=== PATIENT | female | born 1930 | race Caucasian/White ===

== ENCOUNTER 2016-05-14 11:57 | Emergency (ER) | payer OTHER, BC ==
[~2016-05-14] VITALS: Ht 152.4 cm; Wt 55.6 kg
[~2016-05-14 11:57] MED LIST: ADULT LOW DOSE81 M1 PO; ASPIR-LOW81 MG PO; CENTRUM SILVER1 EAC3 PO; COREG6.25 M1 PO; COUMADIN2 MG PO; COZAAR25 MG PO; COZAAR50 MG PO; FLEXERIL5 MG PO; GLUCOTROL5 MG PO; LANOXIN,DIGI0.125 MG PO; LASIX40 MG PO; MELATONIN5 M1 PO; NORCO 5/3251 TABLET PO; OS-CAL 500+D C1 EAC1 PO; PRILOSEC40 MG PO; REQUIP0.25 MG PO; ROCALTROL0.25 MCG PO; SIMVASTATIN40 MG PO; SPIRONOLACTONE25 MG PO; VITAMIN D1000 UNIT PO
[2016-05-14 12:38] LABS: EOSINOPHIL COUNT 0.1 K/uL (0-0.3); HEMATOCRIT 33.3 % (36.0-46.0); IMMATURE GRANULOCYTE (%) 0.3 % (0.0-0.7); IMMATURE GRANULOCYTE COUNT 0.2 K/uL; LYMPHOCYTE COUNT 1.9 K/uL (1.0-2.8); MCH 30.2 PG (29.0-34.0); MCHC 32.7 G/DL (30.0-36.0); MCV 92.2 FL (83-99); MEAN PLAT.VOLUME 9.7 uM^3 (9.5-12.4); MONOCYTE (%) 8.8 % (3-12); MONOCYTE COUNT 0.6 K/uL (0-0.8); NEUTROPHIL COUNT 4.4 K/uL (1.8-6.4); PLATELET COUNT 217 K/uL (156-360); RBC DIS.WIDTH-SD 49.1 % (39-53); RED BLOOD COUNT 3.61 M/uL (3.80-5.20); WHITE BLOOD COUNT 7.1 K/uL (4.1-10.2)
[2016-05-14 12:49] LABS: CHLORIDE 108 mEq/L (99-109); POTASSIUM 3.9 mEq/L (3.7-5.4); SODIUM 140 mEq/L (136-147)
[2016-05-14 12:52] LABS: ANION GAP 11 MEQ/L (2-14); GLUCOSE 159 mg/dL (70-99)
[2016-05-14 12:53] LABS: TOTAL BILIRUBIN 0.6 mg/dL (0.0-1.0)
[2016-05-14 12:54] LABS: ALKALINE PHOSPHATASE 67 IU/L (3-129)
[2016-05-14 12:55] LABS: GFR ESTIMATE (CALCULATED) 32 mL/min/
[2016-05-14 12:56] LABS: UREA NITROGEN (BUN) 28 mg/dL (9-23)
[2016-05-14 12:57] LABS: D-DIMER ELISA 0.55 mg/L FEU (< 0.57)
[2016-05-14] MEDS ORDERED: LEVAQUIN500 MG PO (14:46)
[2016-05-14 15:31] VITALS: BP 116/78
== END 2016-05-14 15:33 | disposition home or self-care (01) ==
LOC: EME → EDBD 11:57 → EME 15:33
PROVIDERS: Emergency Medicine
DX: I50.9 Heart failure, unspecified (principal); J18.9 Pneumonia, unspecified organism; Z79.01 Long term (current) use of anticoagulants; I25.2 Old myocardial infarction; Z86.73 Personal history of transient ischemic attack (TIA), and cerebral infarction without residual deficits; E11.9 Type 2 diabetes mellitus without complications; K21.9 Gastro-esophageal reflux disease without esophagitis; Z87.891 Personal history of nicotine dependence
CPT/HCPCS: 71010; 80053; 83605; 83880; 85025; 85379; 87040; 93005; 99281; 99285; J1940; J1956

== ENCOUNTER 2017-05-09 18:12 | Inpatient (IN) | payer OTHER, BC ==
[~2017-05-09] VITALS: Ht 121.9 cm; Wt 57.0 kg
[~2017-05-09 18:12] MED LIST changes: +CALCIUM 600 +1 EAC2 PO; +GLUCOTROL XL5 MG PO; -GLUCOTROL5 MG PO; -LANOXIN,DIGI0.125 MG PO; +LANOXIN125 MCG PO; +LASIX20 MG PO; -LASIX40 MG PO; +LEVAQUIN500 MG PO; +OMEPRAZOLE40 M1 PO; -OS-CAL 500+D C1 EAC1 PO; -PRILOSEC40 MG PO
[2017-05-09 19:25] LABS: HEMATOCRIT 32.9 % (36.0-46.0); HEMOGLOBIN 10.8 G/DL (11.9-15.5); MCH 31.1 PG (29.0-34.0); MCHC 32.8 G/DL (30.0-36.0); MCV 94.8 FL (83-99); RBC DIS.WIDTH-CV 13.5 % (11.8-14.6); RBC DIS.WIDTH-SD 46.7 % (39-53); RED BLOOD COUNT 3.47 M/uL (3.80-5.20)
[2017-05-09 19:31] LABS: PLATELET COUNT 158 K/uL (156-360)
[2017-05-09 19:36] LABS: CHLORIDE 103 mEq/L (99-109); POTASSIUM 4.5 mEq/L (3.7-5.4); SODIUM 137 mEq/L (136-147)
[2017-05-09 19:38] LABS: GLUCOSE 106 mg/dL (70-99)
[2017-05-09 19:42] LABS: CREATININE 1.8 mg/dL (0.6-1.3); GFR ESTIMATE (CALCULATED) 28 mL/min/
[2017-05-09 19:43] LABS: UREA NITROGEN (BUN) 29 mg/dL (9-23)
[2017-05-09 19:56] LABS: APPEARANCE CLOUDY ((CLEAR)); BILIRUBIN NEGATIVE; BLOOD MODERATE; COLOR YELLOW ((YELLOW)); GLUCOSE (STRIP) NEGATIVE; KETONES NEGATIVE; LEUKOCYTES LARGE; NITRITE NEGATIVE; PROTEIN (STRIP) 100; SPECIFIC GRAVITY 1.012 (1.000-1.030); UROBILINOGEN 0.2 MG/DL (0.2-1.0)
[2017-05-09 20:12] LABS: TROP-I INTERPRETATION NEGATIVE; TROPONIN-I 0.18 ng/mL (0.0-0.30)
[2017-05-09 20:18] LABS: BACTERIA 3+ /HPF; EPITHELIAL CELLS NONE SEEN /HPF; MUCUS NONE SEEN /LPF; RED BLOOD CELLS 0-5 /HPF (0-5); UCUL ADDED? YES; WHITE BLOOD CELLS TNTC /HPF (0-5)
[2017-05-09] MEDS ORDERED: GLIPIZIDE ER2.5 MG PO (21:07)
[2017-05-09] MEDS ORDERED: ELIQUIS2.5 MG PO (21:09)
[2017-05-09] MEDS ORDERED: IPRATROPIUM BRO30 ML BOTH NARES (21:09)
[2017-05-09] MEDS ORDERED: SYNTHROID50 MCG PO ×2 (21:10)
[2017-05-10 00:52] VITALS: BP 114/62
[2017-05-10 06:35] LABS: CHLORIDE 106 MEQ/L (99-109); CREATININE 1.8 MG/DL (0.6-1.3); GFR ESTIMATE (CALCULATED) 28 mL/min/; GLUCOSE 113 mg/dL (70-99); POTASSIUM 3.9 MEQ/L (3.7-5.4); SODIUM 140 MEQ/L (136-147); UREA NITROGEN (BUN) 34 mg/dL (9-23)
[2017-05-10 07:28] VITALS: BP 124/60
[2017-05-10 08:03] LABS: HEMATOCRIT 31.3 % (36.0-46.0); HEMOGLOBIN 9.8 G/DL (11.9-15.5); MCH 30.2 PG (29.0-34.0); MCHC 31.3 G/DL (30.0-36.0); MCV 96.3 FL (83-99); PLATELET COUNT 139 K/uL (156-360); RBC DIS.WIDTH-CV 13.6 % (11.8-14.6); RBC DIS.WIDTH-SD 48.5 % (39-53); RED BLOOD COUNT 3.25 M/uL (3.80-5.20); WHITE BLOOD COUNT 5.4 K/uL (4.1-10.2)
[2017-05-10 11:15] VITALS: BP 107/51
[2017-05-10 15:09] VITALS: BP 131/58
[2017-05-10 19:11] VITALS: BP 130/60
[2017-05-10 23:35] VITALS: BP 132/62
[2017-05-11 04:08] VITALS: BP 136/62
[2017-05-11 07:15] VITALS: BP 146/63
[2017-05-11 11:06] VITALS: BP 109/55
[2017-05-11] MEDS ORDERED: LEVOFLOXACIN750 MG PO (13:47)
[2017-05-11] MEDS ORDERED: OSELTAMIVIR PHO30 MG PO (13:48)
[2017-05-11 15:59] VITALS: BP 114/59
== END 2017-05-11 17:04 | disposition home health service (06) | DRG 193 ==
LOC: EME 18:12 → EDOF 21:24 → 5SOUTH 21:24 → ENRESERV 21:26 → 5SOUTH 05-10 00:16
PROVIDERS: Emergency Medicine; Hospitalist; Internal Medicine
DX: J10.08 Influenza due to other identified influenza virus with other specified pneumonia (principal); J15.9 Unspecified bacterial pneumonia; J96.01 Acute respiratory failure with hypoxia; I13.0 Hypertensive heart and chronic kidney disease with heart failure and stage 1 through stage 4 chronic kidney disease, or unspecified chronic kidney disease; I50.9 Heart failure, unspecified; N18.3 Chronic kidney disease, stage 3 (moderate); E11.22 Type 2 diabetes mellitus with diabetic chronic kidney disease; I48.0 Paroxysmal atrial fibrillation; I25.10 Atherosclerotic heart disease of native coronary artery without angina pectoris; I42.0 Dilated cardiomyopathy; I25.2 Old myocardial infarction; I47.1 Supraventricular tachycardia; D63.8 Anemia in other chronic diseases classified elsewhere; G25.81 Restless legs syndrome; M19.90 Unspecified osteoarthritis, unspecified site; M54.16 Radiculopathy, lumbar region; G89.29 Other chronic pain; G47.00 Insomnia, unspecified; E78.5 Hyperlipidemia, unspecified; E03.9 Hypothyroidism, unspecified; K21.9 Gastro-esophageal reflux disease without esophagitis; F32.9 Major depressive disorder, single episode, unspecified; Z86.73 Personal history of transient ischemic attack (TIA), and cerebral infarction without residual deficits; Z87.19 Personal history of other diseases of the digestive system; Z87.442 Personal history of urinary calculi; Z90.710 Acquired absence of both cervix and uterus; Z96.642 Presence of left artificial hip joint; Z87.891 Personal history of nicotine dependence; Z79.01 Long term (current) use of anticoagulants; Z83.3 Family history of diabetes mellitus; Z82.49 Family history of ischemic heart disease and other diseases of the circulatory system
CPT/HCPCS: 71046; 80048; 81003; 82948; 83605; 84484; 85027; 87040; 87077; 87086; 87186; 87502; 93005; 94760; 94799; 99202; J0744; J1815; J7030

== ENCOUNTER 2017-09-23 08:41 | Inpatient (IN) | payer OTHER, BC ==
[~2017-09-23] VITALS: Ht 144.8 cm; Wt 48.1 kg
[~2017-09-23 08:41] MED LIST changes: +ELIQUIS2.5 MG PO; +GLIPIZIDE ER2.5 MG PO; +IPRATROPIUM BRO30 ML BOTH NARES; +LEVOFLOXACIN750 MG PO; +OSELTAMIVIR PHO30 MG PO; +SYNTHROID50 MCG PO
[2017-09-23 09:10] LABS: BASOPHIL (%) 0.4 % (0-1); EOSINOPHIL (%) 1.4 % (0-5); EOSINOPHIL COUNT 0.2 K/uL (0-0.3); HEMATOCRIT 33.5 % (36.0-46.0); HEMOGLOBIN 10.9 G/DL (11.9-15.5); IMMATURE GRANULOCYTE (%) 0.7 % (0.0-0.7); LYMPHOCYTE (%) 15.7 % (15-42); LYMPHOCYTE COUNT 1.7 K/uL (1.0-2.8); MCH 28.4 PG (29.0-34.0); MCHC 32.5 G/DL (30.0-36.0); MCV 87.2 FL (83-99); MONOCYTE (%) 8.7 % (3-12); MONOCYTE COUNT 0.9 K/uL (0-0.8); NEUTROPHIL (%) 73.1 % (45-76); NEUTROPHIL COUNT 7.8 K/uL (1.8-6.4); PLATELET COUNT 298 K/uL (156-360); RBC DIS.WIDTH-CV 13.8 % (11.8-14.6); RBC DIS.WIDTH-SD 43.7 % (39-53); RED BLOOD COUNT 3.84 M/uL (3.80-5.20); WHITE BLOOD COUNT 10.6 K/uL (4.1-10.2)
[2017-09-23 09:16] LABS: INTER. NORMALIZED RATIO 1.5
[2017-09-23 09:18] LABS: PTT 28.7 SEC (25-37)
[2017-09-23 09:21] LABS: CHLORIDE 102 mEq/L (99-109); POTASSIUM 4.5 mEq/L (3.7-5.4); SODIUM 137 mEq/L (136-147)
[2017-09-23 09:22] LABS: GLUCOSE 149 mg/dL (70-99)
[2017-09-23 09:26] LABS: CREATININE 1.5 mg/dL (0.6-1.3); GFR ESTIMATE (CALCULATED) 35 mL/min/
[2017-09-23 09:27] LABS: UREA NITROGEN (BUN) 29 mg/dL (9-23)
[2017-09-23 09:31] LABS: TROP-I INTERPRETATION NEGATIVE; TROPONIN-I 0.03 ng/mL (0.0-0.30)
[2017-09-23] MEDS ORDERED: CEFTIN250 MG PO (12:28)
[2017-09-23 13:12] LABS: TROP-I INTERPRETATION NEGATIVE; TROPONIN-I 0.03 ng/mL (0.0-0.30)
[2017-09-23 15:21] VITALS: BP 140/68
[2017-09-23 19:18] LABS: TROP-I INTERPRETATION NEGATIVE; TROPONIN-I 0.05 ng/mL (0.0-0.30)
[2017-09-23 20:11] VITALS: BP 128/64
[2017-09-23 23:56] VITALS: BP 111/56
[2017-09-24 03:45] VITALS: BP 110/54
[2017-09-24 05:31] LABS: HEMOGLOBIN 9.2 G/DL (11.9-15.5); MCHC 30.7 G/DL (30.0-36.0); PLATELET COUNT 295 K/uL (156-360); RBC DIS.WIDTH-CV 13.9 % (11.8-14.6); RBC DIS.WIDTH-SD 44.3 % (39-53); RED BLOOD COUNT 3.41 M/uL (3.80-5.20); WHITE BLOOD COUNT 8.8 K/uL (4.1-10.2)
[2017-09-24 06:22] LABS: CHLORIDE 104 MEQ/L (99-109); POTASSIUM 4.4 MEQ/L (3.7-5.4); SODIUM 139 MEQ/L (136-147); UREA NITROGEN (BUN) 38 mg/dL (9-23)
[2017-09-24 06:25] LABS: CREATININE 2.2 MG/DL (0.6-1.3); GFR ESTIMATE (CALCULATED) 22 mL/min/; GLUCOSE 99 mg/dL (70-99)
[2017-09-24 11:11] VITALS: BP 98/50
[2017-09-24 16:28] VITALS: BP 118/57
[2017-09-24 20:30] VITALS: BP 165/70
[2017-09-25 03:53] VITALS: BP 116/55
[2017-09-25 05:17] LABS: HEMATOCRIT 29.5 % (36.0-46.0); HEMOGLOBIN 9.2 G/DL (11.9-15.5); MCH 27.6 PG (29.0-34.0); MCHC 31.2 G/DL (30.0-36.0); MCV 88.6 FL (83-99); PLATELET COUNT 279 K/uL (156-360); RBC DIS.WIDTH-SD 45.7 % (39-53); RED BLOOD COUNT 3.33 M/uL (3.80-5.20); WHITE BLOOD COUNT 8.6 K/uL (4.1-10.2)
[2017-09-25 05:41] LABS: CHLORIDE 103 MEQ/L (99-109); CREATININE 1.8 MG/DL (0.6-1.3); GFR ESTIMATE (CALCULATED) 28 mL/min/; GLUCOSE 124 mg/dL (70-99); POTASSIUM 4.6 MEQ/L (3.7-5.4); SODIUM 136 MEQ/L (136-147); UREA NITROGEN (BUN) 36 mg/dL (9-23)
[2017-09-25 10:13] VITALS: BP 133/64
[2017-09-25 11:22] VITALS: BP 168/60
[2017-09-25 15:24] VITALS: BP 105/52
[2017-09-25 19:11] VITALS: BP 128/73
[2017-09-26 00:24] VITALS: BP 143/65
[2017-09-26 03:16] VITALS: BP 157/68
[2017-09-26 05:10] LABS: HEMATOCRIT 32.4 % (36.0-46.0); HEMOGLOBIN 9.9 G/DL (11.9-15.5); MCH 26.8 PG (29.0-34.0); MCHC 30.6 G/DL (30.0-36.0); MCV 87.8 FL (83-99); PLATELET COUNT 294 K/uL (156-360); RBC DIS.WIDTH-CV 13.9 % (11.8-14.6); RBC DIS.WIDTH-SD 44.4 % (39-53); RED BLOOD COUNT 3.69 M/uL (3.80-5.20); WHITE BLOOD COUNT 9.1 K/uL (4.1-10.2)
[2017-09-26 05:34] LABS: CHLORIDE 102 MEQ/L (99-109); CREATININE 1.5 MG/DL (0.6-1.3); GFR ESTIMATE (CALCULATED) 35 mL/min/; GLUCOSE 144 mg/dL (70-99); POTASSIUM 4.4 MEQ/L (3.7-5.4); SODIUM 136 MEQ/L (136-147); UREA NITROGEN (BUN) 34 mg/dL (9-23)
[2017-09-26 07:20] VITALS: BP 142/64
[2017-09-26 11:40] VITALS: BP 133/60
[2017-09-26 15:50] VITALS: BP 136/64
[2017-09-26 18:52] VITALS: BP 186/87
[2017-09-27] VITALS: BP 147/86
[2017-09-27 04:07] VITALS: BP 115/58
[2017-09-27 07:15] VITALS: BP 147/69
[2017-09-27] MEDS ORDERED: CEFTIN500 MG PO (10:30)
== END 2017-09-27 14:08 | DRG 682 ==
LOC: EME 08:41 → EDOF 11:21 → ENRESERV 11:22 → 4SOUTH 13:07
PROVIDERS: Emergency Medicine; Hospitalist; Internal Medicine; Physician Assistant Medical
DX: N17.9 Acute kidney failure, unspecified (principal); E86.0 Dehydration; E86.1 Hypovolemia; T50.2X5A Adverse effect of carbonic-anhydrase inhibitors, benzothiadiazides and other diuretics, initial encounter; M75.122 Complete rotator cuff tear or rupture of left shoulder, not specified as traumatic; J18.9 Pneumonia, unspecified organism; I13.0 Hypertensive heart and chronic kidney disease with heart failure and stage 1 through stage 4 chronic kidney disease, or unspecified chronic kidney disease; I50.9 Heart failure, unspecified; E11.22 Type 2 diabetes mellitus with diabetic chronic kidney disease; N18.3 Chronic kidney disease, stage 3 (moderate); I25.10 Atherosclerotic heart disease of native coronary artery without angina pectoris; F32.9 Major depressive disorder, single episode, unspecified; I42.0 Dilated cardiomyopathy; G25.81 Restless legs syndrome; M54.16 Radiculopathy, lumbar region; I48.0 Paroxysmal atrial fibrillation; I44.7 Left bundle-branch block, unspecified; E78.5 Hyperlipidemia, unspecified; D64.9 Anemia, unspecified; E78.00 Pure hypercholesterolemia, unspecified; E89.0 Postprocedural hypothyroidism; K21.9 Gastro-esophageal reflux disease without esophagitis; Z96.642 Presence of left artificial hip joint; Z88.0 Allergy status to penicillin; Z79.01 Long term (current) use of anticoagulants; Z86.73 Personal history of transient ischemic attack (TIA), and cerebral infarction without residual deficits; I25.2 Old myocardial infarction; Z87.891 Personal history of nicotine dependence; Z88.2 Allergy status to sulfonamides
CPT/HCPCS: 71045; 71250; 73030; 73221; 74176; 80048; 81003; 82948; 84484; 85025; 85027; 85610; 85730; 87040; 87449; 93005; 94799; 97530 GO; 99202; 99281; 99285; G0378; J0456; J0696; J1200; J1815; J1885